=== PATIENT | male | born 1955 | race Caucasian/White ===

== ENCOUNTER 2017-09-21 14:30 | Outpatient (CLI) | payer OTHER | END 2017-09-21 14:31 | disposition home or self-care (01) | LOC: BICULT 14:30 | PROVIDERS: ATTEND Nurse Practitioner Family | DX: R60.0 Localized edema (principal); I82.402 Acute embolism and thrombosis of unspecified deep veins of left lower extremity ==

== ENCOUNTER 2025-01-10 11:57 | Outpatient (CLI) | payer MEDICARE | END 2025-01-10 11:58 | disposition home or self-care (01) | LOC: RAD 11:57 | PROVIDERS: ATTEND Internal Medicine | DX: J44.9 Chronic obstructive pulmonary disease, unspecified (principal); Q79.1 Other congenital malformations of diaphragm | CPT/HCPCS: 71046 ==